=== PATIENT | female | born 1940 ===

== ENCOUNTER 2024-12-08 18:54 | Outpatient (REF) | payer MEDICARE, SELFPAY | END 2024-12-08 18:55 | disposition home or self-care (01) | LOC: LBN 18:54 | PROVIDERS: Visit Provider Obstetrics & Gynecology | DX: R35.0 Frequency of micturition (principal) | CPT/HCPCS: 87077; 87086; 87186 ==

== ENCOUNTER 2025-01-06 14:53 | Outpatient (REF) | payer MEDICARE, SELFPAY | END 2025-01-06 14:54 | disposition home or self-care (01) | LOC: LBN 14:53 | PROVIDERS: Visit Provider Obstetrics & Gynecology | DX: L98.8 Other specified disorders of the skin and subcutaneous tissue (principal) | CPT/HCPCS: 88305 ==